=== PATIENT | male | born 1945 | race Caucasian/White ===

== ENCOUNTER 2017-02-26 23:36 | Observation (INO) | payer MEDICARE ==
[~2017-02-26] VITALS: Ht 177.8 cm; Wt 110.0 kg
[~2017-02-26 23:36] MED LIST: AMBI10TA PO; AMIO200T PO; ASPI1TAB69 PO; AUGM875T PO; BEDSIDE COMMODE1 MI1; CARD180C5 PO; GETGO ROLLING W1 MI1; METO-309 PO; OXYC1TAB63 PO; PRED20 PO; PROT40TA PO
[2017-02-26 23:39] VITALS: BP 108/79; PULSE 42; RESP 24; TEMP 98.1; O2SAT 97
[2017-02-26] MEDS ORDERED: SODIUM CHLOR 0.9% 1000 ML INJ 1,000 ML IV SCH (23:40)
[2017-02-26] MEDS ORDERED: SODIUM CHLORIDE 0.9% FLUSH 10 ML FLUSH IVF PRN (23:45)
[2017-02-27] VITALS (8 sets, daily range): BP systolic 101–133; BP diastolic 55–71; PULSE 42–96; RESP 16–20; TEMP 97.9–98.5; O2SAT 93–97
[2017-02-27] MEDS ORDERED: FEXO15TA PO (00:07)
[2017-02-27] MEDS ORDERED: ASPI81CH CHEW (00:07)
[2017-02-27] MEDS ORDERED: GUAI1TAB18 PO (00:07)
[2017-02-27] MEDS ORDERED: UMEC1INH INH (00:07)
[2017-02-27] MEDS ORDERED: LOSA50TA PO (00:07)
[2017-02-27] MEDS ORDERED: FLUTI110I INH ×2 (00:07→00:09)
[2017-02-27] MEDS ORDERED: BUPR150T12 PO ×2 (00:07→00:09)
[2017-02-27 00:08] LABS: AUTOMATED NEUTROPHIL # 7.3 TH/MM3 (1.8-7.7); BASOPHIL # 0.1 TH/MM3 (0-0.2); BASOPHIL % 0.8 % (0.0-2.0); EOSINOPHIL # 0.1 TH/MM3 (0-0.4); EOSINOPHIL % 1.4 % (0.0-4.0); HEMATOCRIT 41.2 % (39.0-51.0); HEMO FLAGS DIFF FINAL; LYMPH % 8.6 % (9.0-44.0); LYMPHOCYTE # 0.8 TH/MM3 (1.0-4.8); MEAN CELL VOLUME 97.9 FL (80.0-100.0); MEAN CORPUSCULAR HEMOGLOBIN 32.3 PG (27.0-34.0); MONO % 9.3 % (0.0-8.0); NEUT % 79.9 % (16.0-70.0); PLATELET COUNT 283 TH/MM3 (150-450); RED BLOOD COUNT 4.21 MIL/MM3 (4.50-5.90); RED CELL DISTRIBUTION WIDTH 17.2 % (11.6-17.2); WHITE BLOOD COUNT 9.1 TH/MM3 (4.0-11.0)
--- NOTE | 2017-02-27 00:08 | PD ---
HPI Chief Complaint: Fall Time Seen by Provider: 23:39 Travel History International Travel<30 days: No Contact w/Intl Traveler<30days: No Traveled to known affect area: No History of Present Illness HPI 71 y/o male presents s/p trip and fall by report of the ambulance team. He states he had too much alcohol today. He was going to refuse transport but then they noticed his heart rate was in the 40s and his blood pressure was lower with a systolic in the 80s. His convinced him to get checked out. He denies any specific pain or symptoms at this time but is difficult to get history from. [facility] Past Medical History Narrative Medical By records Arthritis: Yes (mild arthritis) Cancer: No High Cholesterol: No COPD: Yes Diabetes: No Endocrine: No Genitourinary: No Hypertension: Yes Immune Disorder: No Insomnia: Yes Musculoskeletal: Yes Neurologic: No Psychiatric: No Reproductive: No Respiratory: Yes (Sinus problems) Immunizations Current: Yes Thyroid Disease: No Tetanus Vaccination: Unknown Past Surgical History Narrative Surgical By records Abdominal Surgery: Yes (right groin hernia repair with [id number]) AICD: No Arteriovenous Shunt: No Body Medical Devices: mesh in right inguinal hernia repair Insulin Pump: No Joint Replacement: No Pacemaker: No Social History Alcohol Use: Yes (pt states "I drank a lot, too much" drinks ETOH daily) Tobacco Use: Yes (1 PPD) Substance Use: No Allergies-Medications (Allergen,Severity, Reaction): Coded Allergies: No Known Allergies (Unverified , 07/06/16) Reported Meds & Prescriptions Reported Meds & Active Scripts Active Protonix (Pantoprazole Sodium) 40 Mg Tab 40 Mg PO DAILY Lopressor (Metoprolol Tartrate) 50 Mg Tab 100 Mg PO BID Cardizem CD 24 HR (Diltiazem CD 24 HR) 180 Mg Caper 180 Mg PO DAILY Amiodarone (Amiodarone HCl) 200 Mg Tab 200 Mg PO DAILY Reported Flovent Hfa 12 GM Inh (Fluticasone Propionate) 110 Mcg/Act Inh 1 Puff INH BID Bupropion Sr 12 HR (Bupropion ER 12 HR (Smoking Deterrent)) 150 Mg Tab 150 Mg PO DAILY Take 1 tablet daily x 3 days then twice daily thereafter. Mucinex (Guaifenesin) 1,200 Mg Tab.er.12h 600 Mg PO BID Suri Allergy (Fexofenadine HCl) 180 Mg Tab 180 Mg PO DAILY Incruse Ellipta Inh (Umeclidinium Peridot Inh) 0.0625 Mg/Act Inh 62.5 Mcg INH DAILY Losartan (Losartan Potassium) 50 Mg Tab 50 Mg PO DAILY Aspirin 81 Mg Chew 81 Mg CHEW DAILY Ambien (Zolpidem Tartrate) 10 Mg Tab 10 Mg PO HS PRN Review of Systems ROS Limitations: Poor Historian Physical Exam Exam Limitations: Poor Historian Narrative GENERAL: Well-nourished, well-developed patient. SKIN: Warm and dry. HEAD: Normocephalic and laceration noted to right forehead EYES: No injection or drainage. ENT: No nasal drainage noted. NECK: Supple, trachea midline. No pain with movement CARDIOVASCULAR: Regular rate and rhythm RESPIRATORY: Breath sounds equal bilaterally. No accessory muscle use. GASTROINTESTINAL: Abdomen soft, non-tender, nondistended. Bruising noted to right upper quadrant EXTREMITIES: No edema. BACK: Nontender without obvious deformity. NEUROLOGICAL: Awake and alert. Motor and sensory grossly within normal limits. Normal speech. Data Data Last Documented VS Vital Signs Date Time Temp Pulse Resp B/P Pulse Ox O2 Delivery O2 Flow Rate FiO2 02/27/17 01:23 42 20 111/55 93 Room Air 02/26/17 23:39 98.1 Orders Chest, Single Ap (02/26/17 23:40) Ct Brain W/O Iv Contrast(Rout) (02/26/17 23:40) Ct Cerv Spine W/O Contrast (02/26/17 23:40) Ct Abd/Pel W Iv Contrast(Rout) (02/26/17 23:40) Iv Access Insert/Monitor (02/26/17 23:40) Ecg Monitoring (02/26/17 23:40) Oximetry (02/26/17 23:40) Sodium Chlor 0.9% 1000 Ml Inj (Ns 1000 M (02/26/17 23:40) Sodium Chloride 0.9% Flush (Ns Flush) (02/26/17 23:45) Thyroid Stimulating Hormone (02/26/17 23:40) Magnesium (Mg) (02/26/17 23:40) Phosphorus (Po4) (02/26/17 23:40) Complete Blood Count With Diff (02/26/17 23:40) Comprehensive Metabolic Panel (02/26/17 23:40) Ckmb (Isoenzyme) Profile (02/26/17 23:40) Troponin I (02/26/17 23:40) Act Partial Throm Time (Ptt) (02/26/17 23:40) Prothrombin Time / Inr (Pt) (02/26/17 23:40) Electrocardiogram (02/26/17 ) Type And Screen (02/26/17 23:40) Alcohol (Ethanol) (02/26/17 23:40) Lidocai-Epi 1%-1:100,000 Inj (Xylocaine- (02/27/17 01:15) Iodixanol 320 Inj (Rad Ct) (Visipaque 32 (02/27/17 01:25) Admit Order (Ed Use Only) (02/27/17 02:02) Labs Laboratory Tests Test 02/26/17 23:55 White Blood Count 9.1 TH/MM3 Red Blood Count 4.21 MIL/MM3 Hemoglobin 13.6 GM/DL Hematocrit 41.2 % Mean Corpuscular Volume 97.9 FL Mean Corpuscular Hemoglobin 32.3 PG Mean Corpuscular Hemoglobin 33.0 % Concent Red Cell Distribution Width 17.2 % Platelet Count 283 TH/MM3 Mean Platelet Volume 7.5 FL Neutrophils (%) (Auto) 79.9 % Lymphocytes (%) (Auto) 8.6 % Monocytes (%) (Auto) 9.3 % Eosinophils (%) (Auto) 1.4 % Basophils (%) (Auto) 0.8 % Neutrophils # (Auto) 7.3 TH/MM3 Lymphocytes # (Auto) 0.8 TH/MM3 Monocytes # (Auto) 0.9 TH/MM3 Eosinophils # (Auto) 0.1 TH/MM3 Basophils # (Auto) 0.1 TH/MM3 CBC Comment DIFF FINAL Differential Comment Prothrombin Time 10.2 SEC Prothromb Time International 0.9 RATIO Ratio Activated Partial 27.7 SEC Thromboplast Time Sodium Level 137 MEQ/L Potassium Level 3.6 MEQ/L Chloride Level 102 MEQ/L Carbon Dioxide Level 23.0 MEQ/L Anion Gap 12 MEQ/L Blood Urea Nitrogen 14 MG/DL Creatinine 1.43 MG/DL Estimat Glomerular Filtration 49 ML/MIN Rate Random Glucose 83 MG/DL Calcium Level 7.9 MG/DL Phosphorus Level 2.9 MG/DL Magnesium Level 2.0 MG/DL Total Bilirubin 0.2 MG/DL Aspartate Amino Transf 12 U/L (AST/SGOT) Alanine Aminotransferase 27 U/L (ALT/SGPT) Alkaline Phosphatase 45 U/L Total Creatine Kinase 59 U/L Troponin I LESS THAN 0.02 NG/ML Total Protein 6.6 GM/DL Albumin 3.4 GM/DL Thyroid Stimulating Hormone 2.350 uIU/ML 3rd Gen Ethyl Alcohol Level 213 MG/DL Blood Type A POSITIVE Antibody Screen NEGATIVE Blood Bank Comment MDM Medical Decision Making Medical Screen Exam Complete: Yes Emergency Medical Condition: Yes Medical Record Reviewed: Yes (pmh confirmed) Interpretation(s) ekg is junctional at 40 no stemi criteria CBC & BMP Diagram 02/26/17 23:55 Last [address] 02/26/172339 Signed Impressions: Service Date/Time: Monday, February 27, 2017 01:00 - CONCLUSION: 1. No evidence of acute intracranial pathology. No masses are identified. Richard Orona MD Chest X-Ray 02/26/172339 Signed Impressions: Service Date/Time: Sunday, February 26, 2017 23:39 - CONCLUSION: 1. Cardiomegaly. No acute pulmonary disease. Richard Orona MD Cervical Spine CT 02/26/172339 Signed Impressions: Service Date/Time: Monday, February 27, 2017 01:01 - CONCLUSION: 1. Moderate degenerative changes as described above. There is no evidence of acute fracture. 2. Multilevel foraminal narrowing as above Richard Orona MD Abdomen/Pelvis CT 02/26/172339 Signed Impressions: Service Date/Time: Monday, February 27, 2017 01:05 - CONCLUSION: 1. No evidence of acute abdominal or pelvic process. No masses are identified. Richard Orona MD Differential Diagnosis electrolyte abnormality, fracture, strain, bleed, cardiac.... Narrative Course will check labs, imaging and monitor, heart rate here in the 40's, bp improved here and no symptoms, place pacer pads and monitor Trauma workup is negative, labs without emergent findings, patient remains bradycardic in the low 40s. We'll place in observation with his Cardizem and metoprolol held which family and patient agree to Physician Communication Physician Communication dr vieira states to place on dr [facility] Diagnosis Primary Impression: Bradycardia Additional Impressions: Fall Qualified Code: W19.XXXA - Fall, initial encounter Alcohol intoxication Qualified Code: F10.920 - Alcoholic intoxication without complication Admitting Information Admitting Physician Requests: Observation Karolina Eldridge MD Feb 27, 2017 00:08
--- NOTE | 2017-02-27 00:17 | RADRPT ---
EXAM DATE/TIME: 02/26/2017 23:39 [facility] COMPARISON: CHEST SINGLE AP, July 23, 2016, 14:07. INDICATIONS : Hypotension, and fall. MEDICAL HISTORY : Chronic obstructive pulmonary disease. Arthritis. SURGICAL HISTORY : Inguinal hernia repair. Arthroscopy. ENCOUNTER: Initial ACUITY: 1 day PAIN SCORE: 0/10 LOCATION: Bilateral chest FINDINGS: The cardiac silhouette is enlarged in transverse diameter. The lungs are free of acute parenchymal op acity. No effusions are identified. The aortic knob is prominent with tortuosity of the descending th oracic aorta. CONCLUSION: 1. Cardiomegaly. No acute pulmonary disease. Richard Orona MD on February 27, 2017 at 0:15 Board Certified Radiologist. This report was verified electronically.
[2017-02-27 00:24] LABS: ALT (GPT) 27 U/L (12-78); ANION GAP 12 MEQ/L (5-15); AST (GOT) 12 U/L (15-37); BLOOD UREA NITROGEN 14 MG/DL (7-18); CHLORIDE 102 MEQ/L (98-107); GLOMERULAR FILTRATION RATE 49 ML/MIN (>89); POTASSIUM 3.6 MEQ/L (3.5-5.1); SODIUM (NA) 137 MEQ/L (136-145)
[2017-02-27 00:32] LABS: ALKALINE PHOSPHATASE 45 U/L (45-117); TOTAL BILIRUBIN ADULT 0.2 MG/DL (0.2-1.0)
[2017-02-27 00:36] LABS: APTT (PATIENT) 27.7 SEC (24.3-30.1); INTERNATIONAL NORMALIZED RATIO 0.9 RATIO; PROTHROMBIN TIME - PATIENT 10.2 SEC (9.8-11.6)
[2017-02-27 00:41] LABS: CREATINE KINASE 59 U/L (39-308)
[2017-02-27] MEDS ORDERED: LIDOCAINE 1%/EPINEPHrine 1:100,000 SOLN 20 ML VIAL INFIL ONE (01:15)
[2017-02-27] MEDS ORDERED: IODIXANOL 320 MG/ML 10 ML VIAL (for Rad CT) IV ONE (01:25)
--- NOTE | 2017-02-27 01:35 | PD ---
Physical Exam Time Seen by Provider: 01:00 Data Data Last Documented VS Vital Signs Date Time Temp Pulse Resp B/P Pulse Ox O2 Delivery O2 Flow Rate FiO2 02/27/17 01:23 42 20 111/55 93 Room Air 02/26/17 23:39 98.1 Orders Chest, Single Ap (02/26/17 23:40) Ct Brain W/O Iv Contrast(Rout) (02/26/17 23:40) Ct Cerv Spine W/O Contrast (02/26/17 23:40) Ct Abd/Pel W Iv Contrast(Rout) (02/26/17 23:40) Iv Access Insert/Monitor (02/26/17 23:40) Ecg Monitoring (02/26/17 23:40) Oximetry (02/26/17 23:40) Sodium Chlor 0.9% 1000 Ml Inj (Ns 1000 M (02/26/17 23:40) Sodium Chloride 0.9% Flush (Ns Flush) (02/26/17 23:45) Thyroid Stimulating Hormone (02/26/17 23:40) Magnesium (Mg) (02/26/17 23:40) Phosphorus (Po4) (02/26/17 23:40) Complete Blood Count With Diff (02/26/17 23:40) Comprehensive Metabolic Panel (02/26/17 23:40) Ckmb (Isoenzyme) Profile (02/26/17 23:40) Troponin I (02/26/17 23:40) Act Partial Throm Time (Ptt) (02/26/17 23:40) Prothrombin Time / Inr (Pt) (02/26/17 23:40) Electrocardiogram (02/26/17 ) Type And Screen (02/26/17 23:40) Alcohol (Ethanol) (02/26/17 23:40) Lidocai-Epi 1%-1:100,000 Inj (Xylocaine- (02/27/17 01:15) Iodixanol 320 Inj (Rad Ct) (Visipaque 32 (02/27/17 01:25) Labs Laboratory Tests Test 02/26/17 23:55 White Blood Count 9.1 TH/MM3 Red Blood Count 4.21 MIL/MM3 Hemoglobin 13.6 GM/DL Hematocrit 41.2 % Mean Corpuscular Volume 97.9 FL Mean Corpuscular Hemoglobin 32.3 PG Mean Corpuscular Hemoglobin 33.0 % Concent Red Cell Distribution Width 17.2 % Platelet Count 283 TH/MM3 Mean Platelet Volume 7.5 FL Neutrophils (%) (Auto) 79.9 % Lymphocytes (%) (Auto) 8.6 % Monocytes (%) (Auto) 9.3 % Eosinophils (%) (Auto) 1.4 % Basophils (%) (Auto) 0.8 % Neutrophils # (Auto) 7.3 TH/MM3 Lymphocytes # (Auto) 0.8 TH/MM3 Monocytes # (Auto) 0.9 TH/MM3 Eosinophils # (Auto) 0.1 TH/MM3 Basophils # (Auto) 0.1 TH/MM3 CBC Comment DIFF FINAL Differential Comment Prothrombin Time 10.2 SEC Prothromb Time International 0.9 RATIO Ratio Activated Partial 27.7 SEC Thromboplast Time Sodium Level 137 MEQ/L Potassium Level 3.6 MEQ/L Chloride Level 102 MEQ/L Carbon Dioxide Level 23.0 MEQ/L Anion Gap 12 MEQ/L Blood Urea Nitrogen 14 MG/DL Creatinine 1.43 MG/DL Estimat Glomerular Filtration 49 ML/MIN Rate Random Glucose 83 MG/DL Calcium Level 7.9 MG/DL Phosphorus Level 2.9 MG/DL Magnesium Level 2.0 MG/DL Total Bilirubin 0.2 MG/DL Aspartate Amino Transf 12 U/L (AST/SGOT) Alanine Aminotransferase 27 U/L (ALT/SGPT) Alkaline Phosphatase 45 U/L Total Creatine Kinase 59 U/L Troponin I LESS THAN 0.02 NG/ML Total Protein 6.6 GM/DL Albumin 3.4 GM/DL Thyroid Stimulating Hormone 2.350 uIU/ML 3rd Gen Ethyl Alcohol Level 213 MG/DL Blood Type A POSITIVE Antibody Screen NEGATIVE Blood Bank Comment [facility] Medical Record Reviewed: Yes Supervised Visit with BRYSON: No Narrative Course I was asked to repair this patient's facial laceration. The patient verbally consents. Procedures Procedure Narrative LACERATION LOCATION: Right eyebrow LENGTH: 1.5 cm NUMBER OF STITCHES/LEIDY: 5 REPAIR: The area of the laceration was prepped with Betadine and sterilely draped. The laceration was infiltrated with 1% lidocaine with epinephrine. The wound was copiously irrigated and explored without evidence of foreign body , tendon injury or neurovascular injury. The wound was closed using 6-0 PROLENE simple interrupted. This was a single layer repair. A sterile dressing was applied. The patient was advised to keep the dressing clean and dry. Patient tolerated the procedure well. Gerson Aviles Feb 27, 2017 01:35
--- NOTE | 2017-02-27 01:47 | RADRPT ---
EXAM DATE/TIME: 02/27/2017 01:00 [facility] COMPARISON: No previous studies available for comparison. INDICATIONS : Trauma; fall. RADIATION DOSE: 56.35 CTDIvol (mGy) MEDICAL HISTORY : Hypertension. Chronic obstructive pulmonary disease. ETOH abuse SURGICAL HISTORY : Inguinal hernia repair. ENCOUNTER: Initial ACUITY: 1 day PAIN SCALE: 4/10 LOCATION: cranial TECHNIQUE: Multiple contiguous axial images were obtained of the head. Using automated exposure control and adj ustment of the mA and/or kV according to patient size, radiation dose was kept as low as reasonably a chievable to obtain optimal diagnostic quality images. DICOM format image data is available electro nically for review and comparison. FINDINGS: CEREBRUM: The ventricles are normal for age. No evidence of midline shift, mass lesion, hemorrhage or acute in farction. No extra-axial fluid collections are seen. POSTERIOR FOSSA: The cerebellum and brainstem are intact. The 4th ventricle is midline. The cerebellopontine angle i s unremarkable. EXTRACRANIAL: The visualized portion of the orbits is intact. SKULL: The calvaria is intact. No evidence of skull fracture. CONCLUSION: 1. No evidence of acute intracranial pathology. No masses are identified. Richard Orona MD on February 27, 2017 at 1:45 Board Certified Radiologist. This report was verified electronically.
--- NOTE | 2017-02-27 01:50 | RADRPT ---
EXAM DATE/TIME: 02/27/2017 01:01 [facility] COMPARISON: No previous studies available for comparison. INDICATIONS : Trauma; fall. RADIATION DOSE: 45.56 CTDIvol (mGy) ; Patient body habitus MEDICAL HISTORY : Hypertension. Chronic obstructive pulmonary disease. ETOH abuse SURGICAL HISTORY : Inguinal hernia repair. ENCOUNTER: Initial ACUITY: 1 day PAIN SCALE: 4/10 LOCATION: neck TECHNIQUE: Volumetric scanning of the cervical spine was performed. Multiplanar reconstructions in the sagittal, coronal and oblique axial planes were performed. Using automated exposure control and adjustment o f the mA and/or kV according to patient size, radiation dose was kept as low as reasonably achievable to obtain optimal diagnostic quality images. DICOM format image data is available electronically f or review and comparison. FINDINGS: CT of the cervical spine was performed in sagittal and axial planes. There is straightening of the no rmal cervical lordosis which may be secondary positioning or spasm. There is multilevel disc space na rrowing and marginal osteophyte formation maximal at C5-C6. There is minimal subluxation of C3 on C4. No focal areas of marrow replacement are identified. The craniocervical junction appears normal. Axi al images were performed from C2-C3 through C7-T1. C2-C3: There is uncovertebral joint hypertrophy on left side. There is mild facet arthritis on the left. Th ere is no significant spinal canal stenosis. C3-C4: There is severe facet arthritis on the left. There is uncovertebral joint hypertrophy on left side. T his compromises the exiting left-sided nerve root exit zone. There is severe neural foraminal narrowi ng on the left. There is no significant spinal canal stenosis. C4-C5: There is osteophytic ridging along the posterior aspect of vertebral body. There is moderate facet ar thritis on the right. There is no significant spinal canal stenosis. There is moderate neural foramin al narrowing bilaterally. C5-C6: There is osteophytic ridging asymmetric to the right. There is moderate neural foraminal narrowing bi laterally. There is uncovertebral joint hypertrophy on the right side. C6-C7: There is osteophytic ridging along the posterior aspect of vertebral body. There is moderate neural f oraminal narrowing bilaterally. There is mild spinal canal stenosis. C7-T1: There is no evidence of disc protrusion or spinal canal stenosis. There is moderate facet arthritis o n the right. The neural foramina are clear bilaterally. CONCLUSION: 1. Moderate degenerative changes as described above. There is no evidence of acute fracture. 2. Multilevel foraminal narrowing as above Richard Orona MD on February 27, 2017 at 1:46 Board Certified Radiologist. This report was verified electronically.
--- NOTE | 2017-02-27 01:54 | RADRPT ---
EXAM DATE/TIME: 02/27/2017 01:05 [facility] COMPARISON: CT ABDOMEN & PELVIS W CONTRAST, July 14, 2016, 16:49. INDICATIONS : Trauma; fall. IV CONTRAST: 47 cc Visipaque (iodixanol) IV ORAL CONTRAST: No oral contrast ingested. RADIATION DOSE: 22.18 CTDIvol (mGy) MEDICAL HISTORY : Hypertension. Chronic obstructive pulmonary disease. ETOH abuse SURGICAL HISTORY : Inguinal hernia repair. ENCOUNTER: Initial ACUITY: 1 day PAIN SCALE: 4/10 LOCATION: abdomen TECHNIQUE: Volumetric scanning of the abdomen and pelvis was performed. Using automated exposure control and ad justment of the mA and/or kV according to patient size, radiation dose was kept as low as reasonably achievable to obtain optimal diagnostic quality images. DICOM format image data is available electro nically for review and comparison. FINDINGS: There is subsegmental atelectasis in the both bases. The liver and spleen are free of focal defects. The gallbladder and pancreas demonstrate no abnormality. The adrenal glands are normal. The kidneys demonstrate no evidence of solid renal mass or hydronephrosis. No free fluid or abdominal masses are identified. No para-aortic adenopathy is seen. Examination of the pelvis demonstrates no evidence of free fluid or pelvic mass. No abnormally enlarg ed inguinal or retroperitoneal lymph nodes are present. The bladder is unremarkable. There is diverti culosis without evidence of diverticulitis. CONCLUSION: 1. No evidence of acute abdominal or pelvic process. No masses are identified. Richard Orona MD on February 27, 2017 at 1:49 Board Certified Radiologist. This report was verified electronically.
--- NOTE | 2017-02-27 13:48 | EKG ---
Date Performed: 02/26/2017 Time Performed: 23:39:56 PTAGE: 71 years EKG: SUPRAVENTRICULAR BRADYCARDIA MARKED LEFT AXIS DEVIATION MODERATE INTRAVENTRICULAR CONDUCTIO N DELAY Compared to previous tracing, previously present SVT is no longer present. The patient now h as a significant bradycardia. Clinical correlation recommended. ABNORMAL ECG PREVIOUS TRACING : 07/11/2016 05.33.58 DOCTOR: Lu Matamoros Interpretating Date/Time 02/27/2017 13:47:29
--- NOTE | 2017-02-27 17:39 | HHI.HP ---
HPI Service [facility] Hospitalists Primary Care Physician Unknown Admission Diagnosis bradycardia, fall Chief Complaint: fall Travel History International Travel<30 Days: No Contact w/Intl Traveler <30 Da: No Traveled to Known Affected Are: No History of Present Illness Pt is a pleasant 71 y/o M with h/o HTN, A.Fib, and COPD. After drinking with some friends, pt had a mechanical fall and suffered a left forehead laceration. Pt denies dizziness or feeling light headed. Pt denies previous episodes of falling. Pt's laceration was repaired in the ER. Pt was found to bradycardic into the 40s and admitted to observation status for further evaluation and treatment. Review of Systems Constitutional: DENIES: Diaphoretic episodes, Fatigue, Fever, Weight gain, Weight loss, Chills, Dizziness, Change in appetite, Night Sweats Endocrine: DENIES: Heat/cold intolerance, Polydipsia, Polyuria, Polyphagia Eyes: DENIES: Blurred vision, Diplopia, Eye inflammation, Eye pain, Vision loss , Photosensitivity, Double Vision Ears, nose, mouth, throat: DENIES: Tinnitus, Hearing loss, Vertigo, Nasal discharge, Oral lesions, Throat pain, Hoarseness, Ear Pain, Running Nose, Epistaxis, Sinus Pain, Toothache, Odynophagia Respiratory: DENIES: Apneas, Cough, Snoring, Wheezing, Hemoptysis, Sputum production, Shortness of breath Cardiovascular: DENIES: Chest pain, Palpitations, Syncope, Dyspnea on Exertion , PND, Lower Extremity Edema, Orthopnea, Claudication Gastrointestinal: DENIES: Abdominal pain, Black stools, Bloody stools, BRB per rectum, Constipation, Diarrhea, GERD, Nausea, Reflux, Vomiting, Difficulty Swallowing, Anorexia Genitourinary: DENIES: Urinary frequency, Urinary incontinence, Urgency, Hematuria, Dysuria, Nocturia Musculoskeletal: DENIES: Joint pain, Muscle aches, Stiffness, Joint Swelling, Back pain, Neck pain Integumentary: DENIES: Abnormal pigmentation, Nail changes, Pruritus, Rash Hematologic/lymphatic: DENIES: Bruising, Lymphadenopathy Immunologic/allergic: DENIES: Eczema, Urticaria Neurologic: DENIES: Abnormal gait, Headache, Localized weakness, Paresthesias, Seizures, Speech Problems, Tremor, Poor Balance Psychiatric: DENIES: Anxiety, Confusion, Mood changes, Depression, Hallucinations, Agitation, Suicidal Ideation, Homicidal Ideation, Delusions, History of Bipolar, History of Schizophrenia Past Family Social History Past Medical History 1) HTN 2) Atrial fibrillaion 3) COPD 4) DAMIEN/CPAP 5) OA Past Surgical History 1) b/l arthroscopic knee surgery 2) right hernia repair Reported Medications Reported Meds & Active Scripts Active Protonix (Pantoprazole Sodium) 40 Mg Tab 40 Mg PO DAILY Amiodarone (Amiodarone HCl) 200 Mg Tab 200 Mg PO DAILY Reported Flovent Hfa 12 GM Inh (Fluticasone Propionate) 110 Mcg/Act Inh 1 Puff INH BID Bupropion Sr 12 HR (Bupropion ER 12 HR (Smoking Deterrent)) 150 Mg Tab 150 Mg PO DAILY Take 1 tablet daily x 3 days then twice daily thereafter. Mucinex (Guaifenesin) 1,200 Mg Tab.er.12h 600 Mg PO BID Suri Allergy (Fexofenadine HCl) 180 Mg Tab 180 Mg PO DAILY Incruse Ellipta Inh (Umeclidinium [place] Inh) 0.0625 Mg/Act Inh 62.5 Mcg INH DAILY Aspirin 81 Mg Chew 81 Mg CHEW DAILY Allergies: Coded Allergies: No Known Allergies (Unverified , 07/06/16) Family History noncontributory Social History - daughter lives locally - occasional binge drinking - tobacco: 1ppd x 50yrs - denies illicit street drugs Physical Exam Vital Signs Vital Signs Date Time Temp Pulse Resp B/P Pulse Ox O2 Delivery O2 Flow Rate FiO2 02/27/17 14:25 97.9 63 16 129/64 97 02/27/17 11:16 98.5 57 16 128/60 96 02/27/17 07:35 97.9 55 16 133/71 96 02/27/17 04:53 97.9 49 18 114/67 96 02/27/17 03:27 96 20 115/60 95 Room Air 02/27/17 02:30 92 20 102/55 94 Room Air 02/27/17 01:23 42 20 111/55 93 Room Air 02/27/17 00:30 94 20 101/58 95 Room Air 02/26/17 23:45 96 Room Air 02/26/17 23:39 98.1 42 24 108/79 97 Physical Exam GENERAL: This is a well-nourished, well-developed patient, in no apparent distress. SKIN: No rashes, ecchymoses or lesions. Cool and dry. HEAD: Atraumatic. Normocephalic. No temporal or scalp tenderness. EYES: Pupils equal round and reactive. Extraocular motions intact. No scleral icterus. No injection or drainage. ENT: Nose without bleeding, purulent drainage or septal hematoma. Throat without erythema, tonsillar hypertrophy or exudate. Uvula midline. Airway patent. NECK: Trachea midline. No JVD or lymphadenopathy. Supple, nontender, no meningeal signs. CARDIOVASCULAR: Regular rate and rhythm without murmurs, gallops, or rubs. RESPIRATORY: Clear to auscultation. Breath sounds equal bilaterally. No wheezes , rales, or rhonchi. GASTROINTESTINAL: Abdomen soft, non-tender, nondistended. No hepato-splenomegaly , or palpable masses. No guarding. MUSCULOSKELETAL: Extremities without clubbing, cyanosis, or edema. No joint tenderness, effusion, or edema noted. No calf tenderness. Negative Homans sign bilaterally. NEUROLOGICAL: Awake and alert. Cranial nerves II through XII intact. Motor and sensory grossly within normal limits. Five out of 5 muscle strength in all muscle groups. Normal speech. Laboratory Laboratory Tests Test 02/26/17 23:55 White Blood Count 9.1 Red Blood Count 4.21 Hemoglobin 13.6 Hematocrit 41.2 Mean Corpuscular Volume 97.9 Mean Corpuscular Hemoglobin 32.3 Mean Corpuscular Hemoglobin 33.0 Concent Red Cell Distribution Width 17.2 Platelet Count 283 Mean Platelet Volume 7.5 Neutrophils (%) (Auto) 79.9 Lymphocytes (%) (Auto) 8.6 Monocytes (%) (Auto) 9.3 Eosinophils (%) (Auto) 1.4 Basophils (%) (Auto) 0.8 Neutrophils # (Auto) 7.3 Lymphocytes # (Auto) 0.8 Monocytes # (Auto) 0.9 Eosinophils # (Auto) 0.1 Basophils # (Auto) 0.1 CBC Comment DIFF FINAL Differential Comment Prothrombin Time 10.2 Prothromb Time International 0.9 Ratio Activated Partial 27.7 Thromboplast Time Sodium Level 137 Potassium Level 3.6 Chloride Level 102 Carbon Dioxide Level 23.0 Anion Gap 12 Blood Urea Nitrogen 14 Creatinine 1.43 Estimat Glomerular Filtration 49 Rate Random Glucose 83 Calcium Level 7.9 Phosphorus Level 2.9 Magnesium Level 2.0 Total Bilirubin 0.2 Aspartate Amino Transf 12 (AST/SGOT) Alanine Aminotransferase 27 (ALT/SGPT) Alkaline Phosphatase 45 Total Creatine Kinase 59 Troponin I LESS THAN 0.02 Total Protein 6.6 Albumin 3.4 Thyroid Stimulating Hormone 2.350 3rd Gen Ethyl Alcohol Level 213 Blood Type A POSITIVE Antibody Screen NEGATIVE Blood Bank Comment Result Diagram: 02/26/17235402/26/[id number] Imaging Last Impressions Head CT 02/26/172339 Signed Impressions: Service Date/Time: Monday, February 27, 2017 01:00 - CONCLUSION: 1. No evidence of acute intracranial pathology. No masses are identified. Richard Orona MD Chest X-Ray 02/26/172339 Signed Impressions: Service Date/Time: Sunday, February 26, 2017 23:39 - CONCLUSION: 1. Cardiomegaly. No acute pulmonary disease. Richard Orona MD Cervical Spine CT 02/26/172339 Signed Impressions: Service Date/Time: Monday, February 27, 2017 01:01 - CONCLUSION: 1. Moderate degenerative changes as described above. There is no evidence of acute fracture. 2. Multilevel foraminal narrowing as above Richard Orona MD Abdomen/Pelvis CT 02/26/172339 Signed Impressions: Service Date/Time: Monday, February 27, 2017 01:05 - CONCLUSION: 1. No evidence of acute abdominal or pelvic process. No masses are identified. Richard Orona MD Septic Shock Reassessment Heart: Regular rate and rhythm Lungs: Clear Skin: Warm Peripheral Pulses: Bounding Right Radial Bounding Left Radial Bounding Right Popliteal Bounding Left Popliteal Bounding Right Dorsalis Pedis Bounding Left Dorsalis Pedis Bounding Right Posterior Tibial Bounding Left Posterior Tibial Capillary Refill: Brisk Assessment and Plan Problem List: (1) Bradycardia Status: Acute Plan: - pt denies dizziness - HR increased in the upper 50s - pt's metoprolol, cardizem, and amiodarone were held - Pt does NOT want continued hospitalization & requests discharge - will NOT continue metoprolol or cardizem upon discharge. Amiodarone only - Case d/w pt's PCP, Dr. Sims. If pt has rebound tachycardia, can resume either metoprolol or cardizme at a lower dose (2) A-fib Status: Chronic Plan: - see above (3) Alcohol intoxication Status: Acute Plan: - importance of alcohol cessation/abstinence d/w pt (4) Fall Status: Acute Plan: - likely d/t intoxication vs symptomatic bradycardia - s/p laceration repair - pt will f/u with PCP for suture removal - I recommended NO further ambien (5) HTN (hypertension) Status: Chronic Plan: - blood pressure readings stable off his losartan - wonder if pt running hypotensive at home - ask pt to keep home BP log and f/u with PCP (6) COPD (chronic obstructive pulmonary disease) Status: Chronic Plan: - continue current home regimen Problem Qualifiers (1) A-fib: Qualified Code: I48.91 - Atrial fibrillation, unspecified type (2) Alcohol intoxication: Qualified Code: F10.920 - Alcoholic intoxication without complication (3) Fall: Qualified Code: W19.XXXA - Fall, initial encounter (4) HTN (hypertension): Qualified Code: I10 - Essential hypertension (5) COPD (chronic obstructive pulmonary disease): Qualified Code: J44.9 - Chronic obstructive pulmonary disease, unspecified COPD type Lexx Underwood DO Feb 27, 2017 17:39
[2017-02-27] MEDS ORDERED: GUAIFENESIN 600 MG PO SCH (21:00)
[2017-02-27] MEDS ORDERED: FLUTICASONE PROPIONATE 110 MCG/ACT 12 GM INHALER INH SCH (21:00)
[2017-02-28] MEDS ORDERED: DILTIAZEM-CD 180 MG CAP ER PO SCH (09:00)
[2017-02-28] MEDS ORDERED: NON-FORMULARY DRUG (Fexofenadine (Allegra Allergy) 180 MG) PO SCH (09:00)
[2017-02-28] MEDS ORDERED: AMIODARONE 200 MG TAB PO SCH (09:00)
[2017-02-28] MEDS ORDERED: NON-FORMULARY DRUG (Umeclidinium Bromide Inh (Incruse Ellipta Inh) 62.5 MCG) INH SCH (09:00)
[2017-02-28] MEDS ORDERED: buPROPion HCL 150 MG SUSTAINED RELEASE TAB PO SCH (09:00)
[2017-02-28] MEDS ORDERED: PANTOPRAZOLE SOD 40 MG DELAYED RELEASE TAB PO SCH (09:00)
[2017-02-28] MEDS ORDERED: LOSARTAN 50 MG TAB PO SCH (09:00)
[2017-02-28] MEDS ORDERED: ASPIRIN 81 MG CHEW TAB CHEW SCH (09:00)
== END 2017-02-27 18:18 | disposition home or self-care (01) ==
LOC: NEPC 23:36 → NEDA 02-27 02:03 → NEPHCDU 02-27 03:42
PROVIDERS: ADMIT Hospitalist; ATTEND Hospitalist
DX: R00.1 Bradycardia, unspecified (principal); S01.81XA Laceration without foreign body of other part of head, initial encounter; F10.129 Alcohol abuse with intoxication, unspecified; R94.31 Abnormal electrocardiogram [ECG] [EKG]; I11.9 Hypertensive heart disease without heart failure; I51.7 Cardiomegaly; I48.2 Chronic atrial fibrillation; J44.9 Chronic obstructive pulmonary disease, unspecified; G47.33 Obstructive sleep apnea (adult) (pediatric); M19.90 Unspecified osteoarthritis, unspecified site; F17.200 Nicotine dependence, unspecified, uncomplicated; Z79.899 Other long term (current) drug therapy; Z79.82 Long term (current) use of aspirin; W01.0XXA Fall on same level from slipping, tripping and stumbling without subsequent striking against object, initial encounter; K57.90 Diverticulosis of intestine, part unspecified, without perforation or abscess without bleeding
CPT/HCPCS: 12051; 70450; 71010; 72125; 74177; 80053; 80307; 82550; 83735; 84100; 84443; 84484; 85025; 85610; 85730; 86850; 86900; 86901; 93005; 96374; 99285; G0378; J7030; Q9967